=== PATIENT | female | born 1985 | race Two or more races ===

== ENCOUNTER 2025-07-04 09:41 | Outpatient (CLI) | payer OTHER | END 2025-07-04 09:50 | disposition home or self-care (01) | LOC: PRENATAL 09:41 | PROVIDERS: ATTEND Obstetrics & Gynecology Maternal & Fetal Medicine | DX: O28.5 Abnormal chromosomal and genetic finding on antenatal screening of mother (principal); O09.529 Supervision of elderly multigravida, unspecified trimester; O34.10 Maternal care for benign tumor of corpus uteri, unspecified trimester; Z3A.14 14 weeks gestation of pregnancy ==

== ENCOUNTER 2025-07-16 11:53 | Outpatient (CLI) | payer OTHER | END 2025-07-16 11:56 | disposition home or self-care (01) | LOC: PRENATAL 11:53 | PROVIDERS: ATTEND Obstetrics & Gynecology Maternal & Fetal Medicine | DX: O28.5 Abnormal chromosomal and genetic finding on antenatal screening of mother (principal); O09.529 Supervision of elderly multigravida, unspecified trimester; O34.10 Maternal care for benign tumor of corpus uteri, unspecified trimester; Z3A.14 14 weeks gestation of pregnancy ==

== ENCOUNTER 2025-07-16 12:22 | Outpatient (CLI) | payer OTHER | END 2025-07-16 12:34 | disposition home or self-care (01) | LOC: LAB 12:22 | PROVIDERS: ATTEND Obstetrics & Gynecology Maternal & Fetal Medicine | DX: Z00.00 Encounter for general adult medical examination without abnormal findings (principal) ==

== ENCOUNTER 2025-08-24 13:07 | Emergency (ER) | payer OTHER ==
[~2025-08-24] VITALS: Ht 160 cm; Wt 96.2 kg
[2025-08-24] MEDS ORDERED: FAMOtidine 10 MG/ML (4ML VIAL) IV ONE (15:45)
[2025-08-24] MEDS ORDERED: ONDANSETRON HCL 2 MG/ML VIAL IV ONE (15:45)
[2025-08-24] MEDS ORDERED: 0.9 % SODIUM CHLORIDE 1,000 ML IV ONE (15:45)
[2025-08-24] MEDS ORDERED: ONDANSETRON HCL 2 MG/ML VIAL ONE (15:49)
[2025-08-24] MEDS ORDERED: FAMOTIDINE/PF 20 MG/2 ML VIAL ONE (15:50)
[2025-08-24 16:21] LABS: BASO % 0.3 % (0.1-1.2); EOS # 0.53 (0.04-0.54); EOS % 5.5 % (0.7-7.0); LYMPH # 1.71 (1.18-3.74); LYMPH % 17.7 % (19.3-53.1); MEAN PLATELET VOLUME 9.60 fl (9.4-12.4); MONO # 0.82 (0.24-0.82); MONO % 8.5 % (4.7-12.5); NEUT # 6.44 (1.56-6.13); NEUT % 66.9 % (34.0-71.1); RED CELL DISTRIBUTION WIDTH 13.1 % (11.6-14.4)
[2025-08-24 16:51] LABS: ALT/SGPT 35.0 U/L (12-78); AST/SGOT 12.0 U/L (15-37); BILIRUBIN TOTAL 0.18 mg/dL (0.3-1.2); BUN CREA RATIO 15.0 (7.0-25.0); CREATININE SERUM 0.46 mg/dL (0.55-1.02); GFR 152.03; GLOBULINA 3.7 G/DL (2.4-3.5); GLUCOSE FASTING 80.0 mg/dL (65-100); OSMOLALITY SERUM 278.0 MOSM/KG (275-295)
[2025-08-24 17:12] LABS: COVID-19 AG NEGATIVE (NEGATIVE)
[2025-08-24 18:43] LABS: URINE APPEARANCE Clear; URINE BILIRRUBIN Negative (NEGATIVE); URINE BLOOD Negative; URINE COLOR Yellow; URINE GLUCOSE Negative (NEGATIVE); URINE KETONE Trace (NEGATIVE); URINE LEUKOCYTE Negative; URINE NITRATE Negative; URINE PROTEIN Negative (NEGATIVE); URINE UROBILINOGEN 0.2 E.U./dl
[2025-08-24 18:47] LABS: URINE BACTERIA 1753.0 uL (0.0-1933); URINE EPITHELIAL CELLS 11.3 uL (0.0-38.8); URINE RBC 2.3 uL (0.0-20.8); URINE WBC 18.1 uL (0.0-23.2)
[2025-08-24 19:12] LABS: URINE CAST 0.29 uL (0.0-1.40)
[2025-08-24] MEDS ORDERED: ZOFRAN8 MG PO (20:57)
[2025-08-24] MEDS ORDERED: PROBIOTIC1 EAC2 PO (20:57)
[2025-08-24] MEDS ORDERED: PEPCID AC20 MG PO (20:57)
[2025-08-24] MEDS ORDERED: CEFADROXIL500 MG PO (20:57)
== END 2025-08-24 21:07 | disposition home or self-care (01) ==
LOC: ER 13:07
PROVIDERS: General Practice
DX: O99.612 Diseases of the digestive system complicating pregnancy, second trimester (principal); K52.9 Noninfective gastroenteritis and colitis, unspecified; Z3A.19 19 weeks gestation of pregnancy; Z87.09 Personal history of other diseases of the respiratory system; Z20.822 Contact with and (suspected) exposure to COVID-19

== ENCOUNTER → 2025-08-30 | Outpatient (CLI) | payer OTHER ==
[~2025-08-30] MED LIST: CEFADROXIL500 MG PO; PEPCID AC20 MG PO; PROBIOTIC1 EAC2 PO; ZOFRAN8 MG PO
== END | disposition home or self-care (01) ==
LOC: PRENATAL 08-29 15:22
PROVIDERS: ATTEND Obstetrics & Gynecology Maternal & Fetal Medicine
DX: O44.00 Complete placenta previa NOS or without hemorrhage, unspecified trimester (principal); O09.529 Supervision of elderly multigravida, unspecified trimester; O34.10 Maternal care for benign tumor of corpus uteri, unspecified trimester; Z3A.20 20 weeks gestation of pregnancy

== ENCOUNTER 2025-09-03 02:57 | Emergency (ER) | payer OTHER ==
[~2025-09-03] VITALS: Ht 160 cm; Wt 96.2 kg
[2025-09-03] MEDS ORDERED: PROTONIX20 MG PO (03:07)
[2025-09-03] MEDS ORDERED: BENZONATATE100 MG PO (03:08)
[2025-09-03] MEDS ORDERED: SINGULAIR4 M1 PO (03:08)
[2025-09-03] MEDS ORDERED: AMOX-CLAV 875-1 EAC1 PO (03:09)
[2025-09-03] MEDS ORDERED: IPRATROPIU0.2 MG/1 M IH (03:09)
[2025-09-03] MEDS ORDERED: ALBUTEROL SULFATE 3 ML/2.5 MG AMPUL.NEB IH SCH (04:30)
[2025-09-03] MEDS ORDERED: IPRATROPIUM BROMIDE 0.5 MG/2.5 ML AMPUL.NEB IH STA (04:31)
[2025-09-03] MEDS ORDERED: METHYLPREDNISOLONE SOD SUCC 125 MG VIAL IV STA (04:32)
[2025-09-03 04:43] LABS: BASO % 0.3 % (0.1-1.2); EOS # 0.58 (0.04-0.54); EOS % 5.1 % (0.7-7.0); LYMPH # 1.86 (1.18-3.74); LYMPH % 16.2 % (19.3-53.1); MEAN PLATELET VOLUME 9.40 fl (9.4-12.4); MONO # 0.70 (0.24-0.82); MONO % 6.1 % (4.7-12.5); NEUT # 7.99 (1.56-6.13); NEUT % 69.6 % (34.0-71.1); RED CELL DISTRIBUTION WIDTH 13.5 % (11.6-14.4)
[2025-09-03 05:01] LABS: ALT/SGPT 49.0 U/L (12-78); AST/SGOT 18.0 U/L (15-37); BILIRUBIN TOTAL 0.25 mg/dL (0.3-1.2); BUN CREA RATIO 17.0 (7.0-25.0); CREATININE SERUM 0.52 mg/dL (0.55-1.02); GFR 131.97; GLOBULINA 4.1 G/DL (2.4-3.5); GLUCOSE FASTING 97.0 mg/dL (65-100); OSMOLALITY SERUM 274.0 MOSM/KG (275-295)
[2025-09-03 05:33] LABS: COVID-19 AG NEGATIVE (NEGATIVE)
[2025-09-03] MEDS ORDERED: BUDESONIDE0.5 MG/2 M IH (07:27)
[2025-09-03] MEDS ORDERED: ALBUTEROL2.5 MG/3 M IH (07:27)
[2025-09-03 08:10] LABS: URINE APPEARANCE Clear; URINE BILIRRUBIN Negative (NEGATIVE); URINE BLOOD Negative; URINE COLOR Yellow; URINE GLUCOSE Negative (NEGATIVE); URINE KETONE Negative (NEGATIVE); URINE LEUKOCYTE Negative; URINE NITRATE Negative; URINE PROTEIN Negative (NEGATIVE); URINE UROBILINOGEN 0.2 E.U./dl
[2025-09-03 08:12] LABS: URINE BACTERIA 109.1 uL (0.0-1933); URINE EPITHELIAL CELLS 11.3 uL (0.0-38.8); URINE WBC 5.0 uL (0.0-23.2)
[2025-09-03 08:21] LABS: URINE CAST 0.00 uL (0.0-1.40); URINE RBC 1.1 uL (0.0-20.8)
== END 2025-09-03 08:02 | disposition home or self-care (01) ==
LOC: ER 02:58
PROVIDERS: Physician Assistant Medical
DX: O99.512 Diseases of the respiratory system complicating pregnancy, second trimester (principal); J45.901 Unspecified asthma with (acute) exacerbation; Z3A.20 20 weeks gestation of pregnancy; Z20.822 Contact with and (suspected) exposure to COVID-19

== ENCOUNTER → 2025-10-23 08:54 | Outpatient (CLI) | payer OTHER ==
[~2025-10-23 08:54] MED LIST changes: +ALBUTEROL2.5 MG/3 M IH; +AMOX-CLAV 875-1 EAC1 PO; +BENZONATATE100 MG PO; +BUDESONIDE0.5 MG/2 M IH; +IPRATROPIU0.2 MG/1 M IH; +PROTONIX20 MG PO; +SINGULAIR4 M1 PO
== END | disposition home or self-care (01) ==
LOC: PRENATAL 08:54
PROVIDERS: ATTEND Obstetrics & Gynecology Maternal & Fetal Medicine
DX: O26.843 Uterine size-date discrepancy, third trimester (principal); O09.523 Supervision of elderly multigravida, third trimester; O34.13 Maternal care for benign tumor of corpus uteri, third trimester; Z3A.28 28 weeks gestation of pregnancy